=== PATIENT | female | born 1995 | race Caucasian/White ===

== ENCOUNTER 2016-10-21 10:30 | Emergency (ER) | payer OTHER ==
[~2016-10-21] VITALS: Ht 154.9 cm; Wt 47.7 kg
[2016-10-21 10:35] VITALS: BP 117/76; PULSE 72; TEMP 98.8
[2016-10-21 11:19] LABS: PH 8 (5-8); URINE APPEARANCE Cloudy; URINE BACTERIA None Seen /hpf; URINE BILIRUBIN Negative (NEGATIVE); URINE BLOOD Negative (NEGATIVE); URINE COLOR Yellow; URINE GLUCOSE Negative (NEGATIVE); URINE KETONE Negative (NEGATIVE); URINE UROBILINOGEN Negative (NEGATIVE)
[2016-10-21 11:20] LABS: URINE WBC >50 /hpf
[2016-10-21] MEDS ORDERED: MACROBID 1100 MG/CAP PO (11:32)
[2016-10-21] MEDS ORDERED: PYRIDIUM200 M1 PO (11:32)
== END 2016-10-21 11:50 | disposition home or self-care (01) ==
LOC: COL.ER 10:30
PROVIDERS: Nurse Practitioner
DX: N39.0 Urinary tract infection, site not specified (principal)

== ENCOUNTER 2016-10-27 14:51 | Emergency (ER) | payer OTHER ==
[~2016-10-27] VITALS: Ht 154.9 cm; Wt 50.0 kg
[~2016-10-27 14:51] MED LIST: MACROBID 1100 MG/CAP PO; PYRIDIUM200 M1 PO
[2016-10-27 14:56] VITALS: BP 130/76; PULSE 99; TEMP 98.4
[2016-10-27 15:23] LABS: PH 7 (5-8); URINE APPEARANCE Cloudy; URINE BACTERIA None Seen /hpf; URINE BILIRUBIN Negative (NEGATIVE); URINE BLOOD Negative (NEGATIVE); URINE COLOR Amber; URINE GLUCOSE Negative (NEGATIVE); URINE KETONE Negative (NEGATIVE); URINE RBC None Seen /hpf; URINE UROBILINOGEN >=4.0 mg/dL (NEGATIVE)
[2016-10-27] MEDS ORDERED: CIPRO 500MG TA500 MG PO (15:46)
== END 2016-10-27 15:57 | disposition home or self-care (01) ==
LOC: COL.ER 14:51
PROVIDERS: Family Medicine
DX: N30.00 Acute cystitis without hematuria (principal); B96.89 Other specified bacterial agents as the cause of diseases classified elsewhere

== ENCOUNTER 2017-03-14 16:44 | Emergency (ER) | payer OTHER ==
[~2017-03-14] VITALS: Ht 154.9 cm; Wt 50.0 kg
[~2017-03-14 16:44] MED LIST changes: +CIPRO 500MG TA500 MG PO
[2017-03-14 16:56] VITALS: BP 122/74; TEMP 98
[2017-03-14 17:46] LABS: COLLECTION METHOD CLEAN CATCH
[2017-03-14 17:57] LABS: MUCOUS Present /lpf; PH 6 (5-8); URINE APPEARANCE Cloudy; URINE BACTERIA Occasional /hpf; URINE BILIRUBIN Negative (NEGATIVE); URINE BLOOD Negative (NEGATIVE); URINE COLOR Yellow; URINE GLUCOSE Negative (NEGATIVE); URINE KETONE Negative (NEGATIVE); URINE LEUKOCYTE ESTERASE 2+ (NEGATIVE); URINE PROTEIN(semi-quant) Negative (NEGATIVE); URINE UROBILINOGEN >=4.0 mg/dL (NEGATIVE)
[2017-03-14 17:58] LABS: URINE WBC >50 /hpf
[2017-03-14] MEDS ORDERED: MACROBID 1100 MG/CAP PO (18:39)
[2017-03-14] MEDS ORDERED: PYRIDIUM200 M1 PO (18:39)
[2017-03-14 18:51] VITALS: PULSE 85
== END 2017-03-14 18:54 | disposition home or self-care (01) ==
LOC: COL.ER 16:44
PROVIDERS: Nurse Practitioner
DX: N39.0 Urinary tract infection, site not specified (principal); Z98.890 Other specified postprocedural states